=== PATIENT | male | born 1975 | race Caucasian/White ===

== ENCOUNTER 2020-10-14 16:29 | Emergency (ER) | payer OTHER, SELFPAY ==
[~2020-10-14] VITALS: Ht 190.5 cm; Wt 90.7 kg
[2020-10-14 17:44] LABS: Basophils # (auto) 0 10 ^3/uL (0-0.2); Basophils % (auto) 0.3 % (0.0-2.0); Eosinophils # (auto) 0 10 ^3/uL (0-0.8); Eosinophils % (auto) 0.2 % (0.0-7.0); Hematocrit 41.8 % (41.0-53.0); Hemoglobin 14.7 g/dL (13.5-17.5); Lymphocytes # (auto) 0.9 10 ^3/uL (0.4-5.4); Lymphocytes % (auto) 10.4 % (10.0-50.0); Mean Corpuscular Hemoglobin 32.8 pg (28.0-32.0); Mean Corpuscular Hgb Conc. 35.2 g/dL (32.0-36.0); Mean Corpuscular Volume 93.1 fL (80.0-100.0); Monocytes % (auto) 11.2 % (0.0-12.0); Neutrophils # (auto) 6.9 10 ^3/uL (1.6-8.6); Neutrophils % (auto) 77.9 % (37.0-80.0); Nucleated Red Blood Cells % 0.1 %; Red Blood Cells 4.48 10^6/uL (4.5-5.90); Red Cell Distribution Width 12.8 % (11.8-14.3); White Blood Cell 8.9 10^3/uL (4.4-10.8)
[2020-10-14 18:01] LABS: Albumin 4.3 g/dL (3.4-5.0); Calcium 9.3 mg/dL (8.5-10.1); Potassium 3.7 mmol/L (3.5-5.1)
[2020-10-14 18:05] LABS: BUN/Creatinine Ratio 15.9; Bilirubin, Total 1.5 mg/dL (0.2-1.0)
[2020-10-14 18:13] LABS: Acetaminophen < 2.0 ug/mL (10-30)
[2020-10-17] MEDS ORDERED: BENZTROPINE MESY 0.5 MG TAB PO PRN (08:45)
[2020-10-17] MEDS ORDERED: traZODone HCL 50 MG TAB PO PRN (08:45)
[2020-10-17] MEDS: risperiDONE 1 MG TAB PO SCH ×2 (09:20→22:00)
[2020-10-17] MEDS: CITALOPRAM HYDROBR 20 MG TAB PO SCH (09:20)
[2020-10-17] MEDS ORDERED: risperiDONE 1 MG TAB PO ONE (10:00)
[2020-10-17] MEDS ORDERED: BENZTROPINE MESY 0.5 MG TAB PO ONE (10:00)
[2020-10-17] MEDS ORDERED: CITALOPRAM HYDROBR 20 MG TAB PO ONE (10:00)
[2020-10-17] MEDS ORDERED: traZODone HCL 50 MG TAB PO ONE (22:00)
[2020-10-18 07:15] VITALS: BP 98/66
[2020-10-18] MEDS ORDERED: HYDROcodone-ACET 5/325MG TAB PO ONE (10:00)
[2020-10-18] MEDS: CITALOPRAM HYDROBR 20 MG TAB PO SCH (10:12)
[2020-10-18] MEDS: risperiDONE 1 MG TAB PO SCH (10:13)
[2020-10-19] MEDS: risperiDONE 1 MG TAB PO SCH (04:11)
== END 2020-10-19 06:20 ==
LOC: ER 16:29
DX: R45.851 Suicidal ideations (principal); R44.0 Auditory hallucinations; Z20.822 Contact with and (suspected) exposure to COVID-19
CPT/HCPCS: 36415; 80053; 80329; 83735; 85025; 87426; 99285; C9803; U0003